=== PATIENT | male | born 1960 | race Hispanic/Latino ===

== ENCOUNTER 2018-07-21 00:44 | Emergency (ER) | payer MEDICAID ==
[2018-07-21 01:12] LABS: APPEARANCE,URINE Clear (CLEAR); BILIRUBIN,URINE Negative (NEGATIVE); COLOR,URINE Yellow (YELLOW); GLUCOSE, URINE (UA) Negative (NEGATIVE); KETONES,URINE Negative (NEGATIVE); LEUKOCYTE ESTERASE ,URINE Negative (NEGATIVE); NITRATE,URINE Negative (NEGATIVE); OCCULT BLOOD,URINE Negative (NEGATIVE); PROTEIN,URINE Negative (NEGATIVE); UROBILINOGEN,URINE 0.2 mg/dL (0.2-1.0)
[2018-07-21 04:38] LABS: BASOPHILS % (AUTO) 1.2 % (0.0-5.0); EOSINOPHILS % (AUTO) 1.8 % (0.0-8.0); HEMATOCRIT 34.1 % (42-54); LYMPHOCYTES % (AUTO) 26.2 % (21.0-51.0); MEAN CORPUSCULAR HEMOGLOBIN 31.5 pg (27.0-33.0); MEAN CORPUSCULAR HGB CONC 34.7 g/dL (32.0-36.0); MEAN CORPUSCULAR VOLUME 90.8 fL (79-99); MONOCYTES % (AUTO) 3.1 % (3.0-13.0); NEUTROPHILS % (AUTO) 67.7 % (40.0-77.0); NUCLEATED RED BLOOD CELLS 0.2 % (0.0-0.19); PLATELET COUNT (AUTO) 255 K/uL (130-400); RED BLOOD CELL COUNT(AUTO) 3.76 MIL/uL (4.50-6.20); RED CELL DISTRIBUTION WIDTH 14.2 % (11.0-15.5); WHITE BLOOD COUNT (AUTO) 13.4 K/uL (4.8-10.8)
[2018-07-21 05:12] LABS: CREATININE 1.1 mg/dL (0.5-1.5); POTASSIUM 4.2 mmol/L (3.5-5.1)
[2018-07-21] MEDS ORDERED: HYDROCODONE/ACETAMINOPHEN 10/325 MG TAB ONE (05:35)
== END 2018-07-21 05:53 | disposition home or self-care (01) ==
LOC: EDH 00:44
DX: R33.9 Retention of urine, unspecified (principal); R10.9 Unspecified abdominal pain; G89.29 Other chronic pain; M54.9 Dorsalgia, unspecified; K21.9 Gastro-esophageal reflux disease without esophagitis; E11.9 Type 2 diabetes mellitus without complications; Z72.0 Tobacco use
CPT/HCPCS: 36415; 51702; 80048; 81003; 85025

== ENCOUNTER 2019-03-21 15:28 | Emergency (ER) | payer MEDICAID ==
[2019-03-21] MEDS ORDERED: CYCLOBENZAPRINE HCL 10 MG TABLET ONE (16:46)
[2019-03-21] MEDS ORDERED: ONDANSETRON ODT 4 MG TAB ONE (16:46)
[2019-03-21] MEDS ORDERED: HYDROCODONE/ACETAMINOPHEN 10/325 MG TAB ONE (16:46)
[2019-03-21] MEDS ORDERED: MORPHINE SULFATE 4 MG/1ML SYG ONE (17:34)
== END 2019-03-21 18:08 | disposition home or self-care (01) ==
LOC: EDH 15:28
DX: S09.90XA Unspecified injury of head, initial encounter (principal); G89.29 Other chronic pain; M54.2 Cervicalgia; M54.5 Low back pain; M54.6 Pain in thoracic spine; I10 Essential (primary) hypertension; K21.9 Gastro-esophageal reflux disease without esophagitis; E11.9 Type 2 diabetes mellitus without complications; Z72.0 Tobacco use; W18.39XA Other fall on same level, initial encounter; Y93.89 Activity, other specified; Y92.89 Other specified places as the place of occurrence of the external cause; Y99.8 Other external cause status
CPT/HCPCS: 70450; 72125; 72128; 72131; 96372; 99284; J2270

== ENCOUNTER 2019-05-19 20:28 | Emergency (ER) | payer MEDICAID ==
[2019-05-19 21:17] LABS: BASOPHILS % (AUTO) 0.5 % (0.0-5.0); EOSINOPHILS % (AUTO) 5.9 % (0.0-8.0); HEMATOCRIT 37.2 % (42-54); LYMPHOCYTES % (AUTO) 33.3 % (21.0-51.0); MEAN CORPUSCULAR HEMOGLOBIN 30.9 pg (27.0-33.0); MEAN CORPUSCULAR HGB CONC 32.8 g/dL (32.0-36.0); MEAN CORPUSCULAR VOLUME 94.2 fL (79-99); MONOCYTES % (AUTO) 4.7 % (3.0-13.0); NEUTROPHILS % (AUTO) 55.3 % (40.0-77.0); PLATELET COUNT (AUTO) 234 K/uL (130-400); RED BLOOD CELL COUNT(AUTO) 3.95 MIL/uL (4.50-6.20); RED CELL DISTRIBUTION WIDTH 12.7 % (11.0-15.5); WHITE BLOOD COUNT (AUTO) 11.1 K/uL (4.8-10.8)
[2019-05-19 21:25] LABS: CREATININE 1.1 mg/dL (0.5-1.5); POTASSIUM 4.4 mmol/L (3.5-5.1)
[2019-05-19 21:27] LABS: APPEARANCE,URINE Clear (CLEAR); BILIRUBIN,URINE Negative (NEGATIVE); COLOR,URINE Yellow (YELLOW); GLUCOSE, URINE (UA) Negative (NEGATIVE); KETONES,URINE Negative (NEGATIVE); LEUKOCYTE ESTERASE ,URINE Negative (NEGATIVE); NITRATE,URINE Negative (NEGATIVE); OCCULT BLOOD,URINE Negative (NEGATIVE); PH,URINE 7.5 (5.0-8.0); PROTEIN,URINE Negative (NEGATIVE); UROBILINOGEN,URINE 0.2 mg/dL (0.2-1.0)
[2019-05-19 21:31] LABS: ALBUMIN 3.7 g/dL (3.5-5.0); BILIRUBIN,TOTAL 0.2 mg/dL (0.2-1.0); TOTAL PROTEIN, SERUM 7.4 g/dL (6.0-8.3)
[2019-05-19 21:35] LABS: AMPHET/METH SCREEN,URINE NEGATIVE (NEGATIVE); BARBITURATE SCREEN, URINE NEGATIVE (NEGATIVE); BENZODIAZEPINES SCREEN,URINE NEGATIVE (NEGATIVE); CANNABINOID SCREEN,URINE NEGATIVE (NEGATIVE); COCAINE SCREEN,URINE NEGATIVE (NEGATIVE); OPIATE SCREEN,URINE NEGATIVE (NEGATIVE); PHENCYCLIDINE SCREEN,URINE NEGATIVE (NEGATIVE)
[2019-05-19 21:54] LABS: B-TYPE NATRIURETIC PEPTIDE 19 pg/mL (0-100)
[2019-05-19] MEDS ORDERED: TRAMADOL HCL 50 MG TABLET ONE (22:13)
== END 2019-05-19 22:45 | disposition home or self-care (01) ==
LOC: EDH 20:28
DX: S83.8X1A Sprain of other specified parts of right knee, initial encounter (principal); M25.461 Effusion, right knee; I10 Essential (primary) hypertension; E11.9 Type 2 diabetes mellitus without complications; K21.9 Gastro-esophageal reflux disease without esophagitis; G89.29 Other chronic pain; M54.9 Dorsalgia, unspecified; Z98.890 Other specified postprocedural states; X58.XXXA Exposure to other specified factors, initial encounter; Y93.89 Activity, other specified; Y92.89 Other specified places as the place of occurrence of the external cause; Y99.8 Other external cause status
CPT/HCPCS: 29505; 36415; 71045; 73562; 80053; 80305; 81003; 82550; 83880; 84484; 85025; 93005

== ENCOUNTER 2019-06-09 17:04 | Emergency (ER) | payer MEDICAID ==
[2019-06-09 17:47] LABS: BASOPHILS % (AUTO) 0.5 % (0.0-5.0); EOSINOPHILS % (AUTO) 3.5 % (0.0-8.0); HEMATOCRIT 37.2 % (42-54); MEAN CORPUSCULAR HEMOGLOBIN 30.9 pg (27.0-33.0); MEAN CORPUSCULAR HGB CONC 33.6 g/dL (32.0-36.0); MEAN CORPUSCULAR VOLUME 92.1 fL (79-99); MONOCYTES % (AUTO) 6.7 % (3.0-13.0); PLATELET COUNT (AUTO) 258 K/uL (130-400); RED BLOOD CELL COUNT(AUTO) 4.04 MIL/uL (4.50-6.20); RED CELL DISTRIBUTION WIDTH 12.5 % (11.0-15.5); WHITE BLOOD COUNT (AUTO) 9.8 K/uL (4.8-10.8)
[2019-06-09 18:16] LABS: CREATININE 1.2 mg/dL (0.5-1.5); POTASSIUM 3.8 mmol/L (3.5-5.1)
[2019-06-09 18:20] LABS: ALBUMIN 3.9 g/dL (3.5-5.0); BILIRUBIN,TOTAL 0.1 mg/dL (0.2-1.0)
[2019-06-09] MEDS ORDERED: IBUPROFEN 400 MG TABLET ONE (19:08)
== END 2019-06-09 19:12 | disposition home or self-care (01) ==
LOC: EDH 17:04
DX: R74.8 Abnormal levels of other serum enzymes (principal); M79.10 Myalgia, unspecified site; I10 Essential (primary) hypertension; G89.29 Other chronic pain; E11.9 Type 2 diabetes mellitus without complications; Z90.49 Acquired absence of other specified parts of digestive tract; Z72.0 Tobacco use; K21.9 Gastro-esophageal reflux disease without esophagitis
CPT/HCPCS: 36415; 80053; 82550; 85025; 93005

== ENCOUNTER 2019-06-14 18:18 | Emergency (ER) | payer MEDICAID ==
[2019-06-14] MEDS ORDERED: ACETAMINOPHEN EXTRA STRENGTH 500 MG TABLET ONE (19:22)
== END 2019-06-14 20:50 | disposition home or self-care (01) ==
LOC: EDH 18:18
DX: S80.01XA Contusion of right knee, initial encounter (principal); E11.9 Type 2 diabetes mellitus without complications; K21.9 Gastro-esophageal reflux disease without esophagitis; I10 Essential (primary) hypertension; G89.29 Other chronic pain; M54.9 Dorsalgia, unspecified; Z90.49 Acquired absence of other specified parts of digestive tract; W18.39XA Other fall on same level, initial encounter; Y93.01 Activity, walking, marching and hiking; Y92.098 Other place in other non-institutional residence as the place of occurrence of the external cause; Y99.8 Other external cause status
CPT/HCPCS: 73562

== ENCOUNTER 2019-06-19 18:51 | Inpatient (IN) | payer MEDICAID ==
[~2019-06-19] VITALS: Ht 170.2 cm; Wt 88.4 kg
[2019-06-19 20:13] LABS: BASOPHILS % (AUTO) 0.4 % (0.0-5.0); EOSINOPHILS % (AUTO) 5.7 % (0.0-8.0); HEMATOCRIT 24.8 % (42-54); LYMPHOCYTES % (AUTO) 26.1 % (21.0-51.0); MEAN CORPUSCULAR HEMOGLOBIN 30.7 pg (27.0-33.0); MEAN CORPUSCULAR HGB CONC 32.3 g/dL (32.0-36.0); MONOCYTES % (AUTO) 8.3 % (3.0-13.0); NEUTROPHILS % (AUTO) 59.1 % (40.0-77.0); PLATELET COUNT (AUTO) 169 K/uL (130-400); RED BLOOD CELL COUNT(AUTO) 2.61 MIL/uL (4.50-6.20); RED CELL DISTRIBUTION WIDTH 13.4 % (11.0-15.5); WHITE BLOOD COUNT (AUTO) 8.5 K/uL (4.8-10.8)
[2019-06-19] MEDS ORDERED: SODIUM CHLORIDE 0.9% 1000ML 1,000 ML IV ONE (20:19)
[2019-06-19 20:21] LABS: CREATININE 1.5 mg/dL (0.5-1.5); INR 0.97 (0.85-1.15); PARTIAL THROMBOPLASTIN TIME 29.2 SEC (26.3-35.5); POTASSIUM 3.8 mmol/L (3.5-5.1); PROTHROMBIN TIME 10.5 SEC (9.6-11.6)
[2019-06-19 20:26] LABS: ALBUMIN 3.3 g/dL (3.5-5.0); BILIRUBIN,TOTAL 0.3 mg/dL (0.2-1.0); TOTAL PROTEIN, SERUM 6.3 g/dL (6.0-8.3)
[2019-06-19 21:31] LABS: RETICULOCYTE % (AUTO) 1.43 % (0.42-2.23)
[2019-06-19 21:57] LABS: % IRON SATURATION 13.6 % (30-44)
[2019-06-19 22:41] LABS: AMPHET/METH SCREEN,URINE NEGATIVE (NEGATIVE); BARBITURATE SCREEN, URINE NEGATIVE (NEGATIVE); BENZODIAZEPINES SCREEN,URINE POSITIVE (NEGATIVE); CANNABINOID SCREEN,URINE NEGATIVE (NEGATIVE); COCAINE SCREEN,URINE NEGATIVE (NEGATIVE); OPIATE SCREEN,URINE POSITIVE (NEGATIVE); PHENCYCLIDINE SCREEN,URINE NEGATIVE (NEGATIVE)
[2019-06-20] MEDS ORDERED: ACETAMINOPHEN 325 MG TAB PO PRN (02:15)
[2019-06-20] MEDS ORDERED: MORPHINE SULFATE 2 MG/ML 1ML SYG IVP PRN (02:15)
[2019-06-20] MEDS ORDERED: DEXTROSE 50%-WATER 50 ML DISP.SYRIN IV PRN (02:30)
[2019-06-20] MEDS ORDERED: ONDANSETRON HCL 4 MG/2 ML VIAL IVP PRN (02:30)
[2019-06-20] MEDS ORDERED: GLUCAGON 1MG KIT 1 MG ML IM PRN (02:30)
[2019-06-20] MEDS ORDERED: SODIUM CHLORIDE 0.9% 1000ML 1,000 ML IV ONE (03:10)
[2019-06-20] MEDS: INSULIN R NPO SSI SQ SCH ×4 (06:00→22:17)
[2019-06-20] MEDS ORDERED: MORPHINE SULFATE 4 MG/1ML SYG ONE (06:37)
[2019-06-20 06:55] LABS: BASOPHILS % (AUTO) 0.3 % (0.0-5.0); EOSINOPHILS % (AUTO) 5.3 % (0.0-8.0); HEMATOCRIT 32.6 % (42-54); LYMPHOCYTES % (AUTO) 32.4 % (21.0-51.0); MEAN CORPUSCULAR HEMOGLOBIN 30.7 pg (27.0-33.0); MEAN CORPUSCULAR HGB CONC 32.5 g/dL (32.0-36.0); MEAN CORPUSCULAR VOLUME 94.5 fL (79-99); MONOCYTES % (AUTO) 7.7 % (3.0-13.0); PLATELET COUNT (AUTO) 175 K/uL (130-400); RED BLOOD CELL COUNT(AUTO) 3.45 MIL/uL (4.50-6.20); RED CELL DISTRIBUTION WIDTH 13.3 % (11.0-15.5); WHITE BLOOD COUNT (AUTO) 8.6 K/uL (4.8-10.8)
[2019-06-20 07:12] LABS: CREATININE 1.1 mg/dL (0.5-1.5); POTASSIUM 3.8 mmol/L (3.5-5.1)
[2019-06-20] MEDS ORDERED: INSULIN R PO SS1 SQ SCH (07:30)
[2019-06-20 07:38] LABS: INR 0.93 (0.85-1.15); PARTIAL THROMBOPLASTIN TIME 31.6 SEC (26.3-35.5); PROTHROMBIN TIME 10.1 SEC (9.6-11.6)
[2019-06-20 08:00] VITALS: BP 168/90
[2019-06-20] MEDS: LACTATED RINGERS 1000ML 1,000 ML IV SCH ×3 (08:00→22:17)
[2019-06-20] MEDS: PANTOPRAZOLE 40 MG/VIAL IVP SCH (09:00)
[2019-06-20] MEDS ORDERED: ASPI-1005 PO (10:41)
[2019-06-20] MEDS: MORPHINE SULFATE 4 MG/1ML SYG IVP PRN ×3 (11:19→22:25)
[2019-06-20 12:00] VITALS: BP 152/83
[2019-06-20] MEDS ORDERED: PIOG45TA64 PO (15:16)
[2019-06-20] MEDS ORDERED: METF-446 PO (15:16)
[2019-06-20] MEDS ORDERED: ACET-66 PO (15:16)
[2019-06-20] MEDS ORDERED: TAMS-1 PO (15:16)
[2019-06-20] MEDS ORDERED: LURA80TA PO (15:16)
[2019-06-20] MEDS ORDERED: FINA5TAB41 PO (15:16)
[2019-06-20] MEDS ORDERED: DICL75TA5 PO (15:16)
[2019-06-20] MEDS ORDERED: AMLO5TAB9 PO (15:16)
[2019-06-20] MEDS ORDERED: MAGN400C PO (15:16)
[2019-06-20] MEDS ORDERED: ONDA8TAB12 PO (15:16)
[2019-06-20] MEDS ORDERED: FERS325 PO (15:16)
[2019-06-20] MEDS ORDERED: HYDR25TA PO (15:16)
[2019-06-20] MEDS ORDERED: CYCL10TA7 PO (15:16)
[2019-06-20] MEDS ORDERED: GABA-531 PO (15:16)
[2019-06-20] MEDS ORDERED: ERGO500014 PO (15:16)
[2019-06-20] MEDS ORDERED: LORA-705 PO (15:16)
[2019-06-20] MEDS ORDERED: VENL100T4 PO (15:16)
[2019-06-20] MEDS ORDERED: METO5TAB2 PO (15:16)
[2019-06-20] MEDS ORDERED: TOPI200T16 PO (15:16)
[2019-06-20] MEDS ORDERED: LISI-613 PO (15:16)
[2019-06-20] MEDS ORDERED: METO50TA18 PO (15:16)
[2019-06-20] MEDS ORDERED: COLE1TAB2 PO (15:16)
[2019-06-20] MEDS ORDERED: FAMO40TA7 PO (15:16)
[2019-06-20] MEDS ORDERED: TOPI100T37 PO (15:16)
--- NOTE | 2019-06-20 15:23 | NUR ---
pt's sister has brought his home meds; i have entered them into the system and called cy acevedo about resuming them; she stated if he felt he needed any of them now to let him take them otherwise she would be here in a few hours to review them.
[2019-06-20 16:00] VITALS: BP 139/72
[2019-06-20 20:04] VITALS: BP 136/81
[2019-06-20] MEDS ORDERED: CYCLOBENZAPRINE HCL 10 MG TABLET PO PRN (20:15)
--- NOTE | 2019-06-20 20:50 | NUR ---
eusebio note met with pateint and states resides athome with sister, uses walker for ambulation, has a hospitalbed, provider 5hrs daily. pt drives. dcplan is back home at time of dc. Addendum: 06/20/19 at 2052 by JESS GILLIS CM Amended: Links added.
[2019-06-20] MEDS ORDERED: TOPIRAMATE 100 MG TAB PO SCH ×2 (21:00)
[2019-06-20] MEDS ORDERED: ONDANSETRON 4 MG TABLET PO PRN (21:00)
[2019-06-20] MEDS ORDERED: LURASIDONE HCL 80 MG PO SCH (21:00)
[2019-06-20] MEDS: METOPROLOL TARTRATE 50 MG TAB PO SCH (22:16)
[2019-06-20] MEDS: GABAPENTIN 300 MG CAPSULE PO SCH (22:16)
[2019-06-20] MEDS: MAGNESIUM OXIDE 400 MG TABLET PO SCH (22:16)
[2019-06-21 00:04] VITALS: BP 137/83
[2019-06-21 01:22] LABS: HEMATOCRIT 28.8 % (42-54)
[2019-06-21 04:04] VITALS: BP 143/83
--- NOTE | 2019-06-21 04:30 | NUR ---
JONES CATHETER PT C/O PAIN TO PELVIC AREA 01/14, AREA OBSERVED TO BE DISTENDED. STATED THE LAST TIME HE URINATED WAS 2330 LAST NIGHT, PEDIATRICIAN MANAGING PARTNER DOCUMENTED 250ML VOID AT THAT TIME, AND ONE MORE VOID PRIOR AT 1945 OF 300ML. BLADDER SCANNER NOT AVAILABLE AT THIS TIME. JONES CATHETER 16FR WAS INSERTED, 1500ML OF CLEAR YELLOW URINE WAS COLLECTED INTO DRAINAGE BAG. PT STATED "FEELS MUCH BETTER, SO MUCH RELIEF". MAURA LYNN WAS PAGED, AWAITING CALL BACK.
[2019-06-21] MEDS: INSULIN HUMULIN R 100 UNIT/ML 3ML SQ SCH ×2 (06:06→11:17)
[2019-06-21] MEDS: METOCLOPRAMIDE 5 MG TABLET PO SCH ×3 (06:07→16:48)
[2019-06-21] MEDS: MORPHINE SULFATE 4 MG/1ML SYG IVP PRN ×3 (06:08→16:48)
[2019-06-21 07:07] LABS: HEMATOCRIT 28.9 % (42-54)
[2019-06-21 08:15] VITALS: BP 142/75
[2019-06-21 08:46] LABS: POTASSIUM 3.3 mmol/L (3.5-5.1)
[2019-06-21] MEDS: METOPROLOL TARTRATE 50 MG TAB PO SCH (08:51)
[2019-06-21] MEDS: MAGNESIUM OXIDE 400 MG TABLET PO SCH (08:52)
[2019-06-21] MEDS: PANTOPRAZOLE 40 MG/VIAL IVP SCH (08:56)
[2019-06-21] MEDS: GABAPENTIN 300 MG CAPSULE PO SCH ×2 (08:56→13:59)
[2019-06-21] MEDS ORDERED: ASPIRIN 81MG TAB.CHEW PO SCH (09:00)
[2019-06-21] MEDS ORDERED: FERROUS SULFATE 325 MG TABLET.DR PO SCH (09:00)
[2019-06-21] MEDS ORDERED: FINASTERIDE 5 MG TABLET PO SCH (09:00)
[2019-06-21] MEDS ORDERED: AMLODIPINE BESYLATE 5 MG TAB PO SCH (09:00)
[2019-06-21] MEDS ORDERED: VENLAFAXINE HCL 75 MG TAB PO SCH (09:00)
[2019-06-21] MEDS ORDERED: LORATADINE 10 MG TABLET PO SCH (09:00)
[2019-06-21] MEDS ORDERED: RANITIDINE HCL 15 MG/1 ML PO SCH (09:00)
[2019-06-21] MEDS ORDERED: LISINOPRIL 20 MG TABLET PO SCH (09:00)
[2019-06-21] MEDS ORDERED: HYDROCHLOROTHIAZIDE 25 MG TABLET PO SCH (09:00)
[2019-06-21] MEDS ORDERED: COLESTIPOL HCL 2 GM PO SCH (09:00)
[2019-06-21] MEDS ORDERED: TAMSULOSIN HCL 0.4 MG CAP.ER.24H PO SCH (09:00)
[2019-06-21] MEDS ORDERED: PANTOPRAZOLE SODIUM 40 MG TABLET.DR PO SCH (09:18)
--- NOTE | 2019-06-21 09:50 | NUR ---
DISCUSSED DC PLAN W / [employer] ANALYST NATY POSS SNF OR REHAB REFERRAL? ORDER RECD, DISCUSSED OPTIONS FOR PATIENT WITH THIS INSURANCE. HX OF FALLS, NOW WITH FX ARM; WILL HAVE REPAIR OUTPATIENT. Addendum: 06/21/19 at 0957 by CYNDY LOPEZ RN CM Amended: Links added.
[2019-06-21 11:31] VITALS: BP 128/78
--- NOTE | 2019-06-21 15:19 | NUR ---
INSTRUCTIONS DISCHARGE INSTRUCTIONS GIVEN TO PATIENT USING TEACH BACK. F/U APPOINTMENTS MADE. NO NEW PRESCRIPTIONS. PATIENT WILL LEAVE WITH SPLINT AND ARM SLING IN PLACE. ALL PRINTED INFORMATION AND MD INSTRUCTIONS PLACED IN PACKET. NO QUESTIONS OR CONCERNS VOICED. JONES CATHETER REMOVED AT THIS TIME. PATIENT IS DUE TO VOID THEN WILL GO HOME.
--- NOTE | 2019-06-21 16:20 | NUR ---
VOIDED PATIENT HAS VOIDED. NOW HE IS PENDING FAMILY TO PICK HIM UP TO TAKE HIM HOME.
[2019-06-21 16:58] VITALS: BP 136/72
== END 2019-06-21 18:02 | disposition home or self-care (01) | DRG 342 ==
LOC: EDH 18:51 → EDHIP 18:52 → 4AH 06-20 08:23
PROVIDERS: ADMIT Internal Medicine Critical Care Medicine; ATTEND Internal Medicine Critical Care Medicine
PROC: 30233N1 Transfusion of Nonautologous Red Blood Cells into Peripheral Vein, Percutaneous Approach (ICD-10-PCS; principal; 2019-06-20)
DX: S42.212A Unspecified displaced fracture of surgical neck of left humerus, initial encounter for closed fracture (principal); E11.43 Type 2 diabetes mellitus with diabetic autonomic (poly)neuropathy; D62 Acute posthemorrhagic anemia; K31.84 Gastroparesis; W18.39XA Other fall on same level, initial encounter; I10 Essential (primary) hypertension; N40.1 Benign prostatic hyperplasia with lower urinary tract symptoms; R55 Syncope and collapse; R29.6 Repeated falls; R33.8 Other retention of urine; Y93.89 Activity, other specified; Y99.8 Other external cause status; Z79.84 Long term (current) use of oral hypoglycemic drugs; Z79.899 Other long term (current) drug therapy; Y92.009 Unspecified place in unspecified non-institutional (private) residence as the place of occurrence of the external cause
CPT/HCPCS: 36415; 70450; 71045; 72125; 72170; 73060; 73090; 73130; 73200; 80048; 80053; 80305; 82270; 82550; 82607; 82728; 82948; 84484; 85014; 85018; 85025; 85610; 85730; 86850; 86900; 86901; 86922; 93005; 93880; 97039; 99291; C9113; G0378; J2270; J7030; J7120; P9016

== ENCOUNTER 2019-08-24 17:28 | Emergency (ER) | payer MEDICAID ==
[~2019-08-24 17:28] MED LIST: ACET-66 PO; AMLO5TAB9 PO; ASPI-1005 PO; COLE1TAB2 PO; CYCL10TA7 PO; DICL75TA5 PO; ERGO500014 PO; FAMO40TA7 PO; FERS325 PO; FINA5TAB41 PO; GABA-531 PO; HYDR25TA PO; LISI-613 PO; LORA-705 PO; LURA80TA PO; MAGN400C PO; METF-446 PO; METO50TA18 PO; METO5TAB2 PO; ONDA8TAB12 PO; PIOG45TA64 PO; TAMS-1 PO; TOPI100T37 PO; TOPI200T16 PO; VENL100T4 PO
[2019-08-24] MEDS ORDERED: KETOROLAC TROMETHAMINE 60 MG/2 ML VIAL ONE (17:51)
== END 2019-08-24 20:51 | disposition home or self-care (01) ==
LOC: EDH 17:28
DX: S13.9XXA Sprain of joints and ligaments of unspecified parts of neck, initial encounter (principal); M54.6 Pain in thoracic spine; R07.89 Other chest pain; G89.29 Other chronic pain; I10 Essential (primary) hypertension; E11.9 Type 2 diabetes mellitus without complications; K21.9 Gastro-esophageal reflux disease without esophagitis; Z98.890 Other specified postprocedural states; Z90.49 Acquired absence of other specified parts of digestive tract; W18.39XA Other fall on same level, initial encounter; Y93.89 Activity, other specified; Y92.89 Other specified places as the place of occurrence of the external cause; Y99.8 Other external cause status
CPT/HCPCS: 70450; 71045; 72125; 72170; 96372; 99285; J1885